=== PATIENT | male | born 1980 | race African-American/Black ===

== ENCOUNTER 2023-06-13 12:13 | Inpatient (IN) | payer BC ==
[2023-06-13] VITALS (18 sets, daily range): BP systolic 63–100; BP diastolic 42–85; TEMP 97.3; O2SAT 88–100
[~2023-06-13] VITALS: Ht 172.7 cm; Wt 74.8 kg
[2023-06-13] MEDS ORDERED: DEXTROSE 50%-WATER 50 ML DISP.SYRIN ONE (12:22)
[2023-06-13] MEDS ORDERED: DEXTROSE 50%-WATER 50 ML DISP.SYRIN IVP ONE (12:30)
[2023-06-13] MEDS ORDERED: HYDROCORTISONE SOD SUCCINATE 100 MG/2 ML VIAL ONE (12:36)
[2023-06-13] MEDS ORDERED: HYDROCORTISONE SOD SUCCINATE 100 MG/2 ML VIAL IV ONE (13:00)
[2023-06-13 13:04] LABS: ALANINE AMINOTRANSFERASE 64 U/L (12-78); ALBUMIN 3.3 g/dL (3.4-5.0); ALKALINE PHOSPHATASE 159 U/L (46-116); ASPARTATE AMINOTRANSFERASE 125 U/L (15-37); BASOPHILS % (AUTO) 0.3 % (0.0-2.0); BILIRUBIN,DIRECT 3.1 mg/dL (0.0-0.2); CALCIUM, SERUM 9.7 mg/dL (8.5-10.1); CARBON DIOXIDE 12 mmol/L (21-32); CHLORIDE 93 mmol/L (98-107); CREATININE 3.5 mg/dL (0.6-1.3); EOSINOPHILS % (AUTO) 0.2 % (0.0-6.0); HEMATOCRIT 27 % (39-51); HEMOGLOBIN 8.1 g/dL (13.5-17.5); LYMPHOCYTES # (AUTO) 0.5 K/uL (0.8-4.8); LYMPHOCYTES % (AUTO) 7.6 % (20.0-44.0); MEAN CORPUSCULAR HEMOGLOBIN 30 PG (26.0-33.0); MEAN CORPUSCULAR HGB CONC 31 g/dl (31.0-36.0); MEAN CORPUSCULAR VOLUME 99 fL (80-96); MONOCYTES # (AUTO) 0.4 K/uL (0.1-1.30); MONOCYTES % (AUTO) 6.2 % (2.0-12.0); NEUTROPHILS # (AUTO) 5.3 K/uL (1.8-8.9); NEUTROPHILS % (AUTO) 85.7 % (43.0-81.0); SODIUM SERUM 131 mmol/L (136-145); TOTAL PROTEIN, SERUM 6.7 g/dL (6.4-8.2); UREA NITROGEN, BLOOD 47 mg/dL (7-18); WHITE BLOOD COUNT (AUTO) 6.1 K/uL (4.3-11.0)
[2023-06-13 13:17] LABS: PLATELET COUNT (AUTO) 27 K/uL (150-450)
[2023-06-13 13:18] LABS: GLUCOSE 30 mg/dL (74-106)
[2023-06-13 13:19] LABS: LACTIC ACID 13.9 mmol/L (0.4-2.0)
[2023-06-13] MEDS ORDERED: AMIO200T5 PO (13:24)
[2023-06-13] MEDS ORDERED: LIDO120C10 TP (13:24)
[2023-06-13] MEDS ORDERED: TROL85CR TP (13:24)
[2023-06-13] MEDS ORDERED: BICT1TAB PO (13:24)
[2023-06-13] MEDS ORDERED: TRAZ-182 PO (13:24)
[2023-06-13] MEDS ORDERED: MIDO10TA PO (13:24)
[2023-06-13] MEDS ORDERED: OXYC5TAB3 PO (13:24)
[2023-06-13] MEDS ORDERED: FURO-144 PO (13:24)
[2023-06-13] MEDS ORDERED: SIME80TA15 PO (13:24)
[2023-06-13] MEDS ORDERED: MELA5TAB PO (13:24)
[2023-06-13] MEDS ORDERED: LIDO30AD10 TD (13:24)
[2023-06-13] MEDS ORDERED: POLY17PO4 PO (13:24)
[2023-06-13] MEDS ORDERED: HONE15GE TP (13:27)
[2023-06-13] MEDS ORDERED: NORM210S TP (13:27)
[2023-06-13] MEDS ORDERED: LEVOFLOXACIN 750 MG /D5W 150ML PIGGYBACK IV ONE (13:30)
[2023-06-13] MEDS ORDERED: IV NS 0.9% 1,000 ML BAG IV ONE (13:30)
[2023-06-13] MEDS ORDERED: VANCOMYCIN 1 GM in IV D5W 250 ML IV ONE (13:30)
[2023-06-13] MEDS ORDERED: ONDANSETRON HCL/PF 4 MG/2 ML VIAL IVP PRN (14:00)
[2023-06-13] MEDS ORDERED: ACETAMINOPHEN 325 MG TABLET PO PRN (14:00)
[2023-06-13] MEDS ORDERED: MAGNESIUM HYDROXIDE 30 ML UDC PO PRN (14:00)
[2023-06-13] MEDS ORDERED: MAG HYDROX/AL HYDROX/SIMETH 30 ML UDC PO PRN (14:00)
[2023-06-13] MEDS ORDERED: IV D5/0.45 NACL 1,000 ML IV SCH (14:00)
[2023-06-13] MEDS ORDERED: Z GUARD REMEDY 4 OZ OINT TP PRN (14:00)
[2023-06-13] MEDS ORDERED: NOREPINEPHRINE 8 MG in IV NS 0.9% 242 ML IV PRN (14:30)
[2023-06-13] MEDS ORDERED: VANCOMYCIN POST DIALYSIS 500MG IV PRN ×2 (15:00)
[2023-06-13 15:19] LABS: SITE, ABG Other
[2023-06-13 17:27] LABS: ANISOCYTOSIS 1+; BAND % (MANUAL) 2 % (0.0-5.0); EOSINOPHILS % (MANUAL) 1 % (0-4); LYMPHOCYTES % (MANUAL) 12 % (16-48); MONOCYTES % (MANUAL) 1 % (0-11.0); NEUTROPHILS % (MANUAL) 84 (42-76); PLATELET ESTIMATE DECREASED; ROULEAUX 1+
[2023-06-13 17:28] LABS: TARGET CELLS 1+
[2023-06-13 17:54] LABS: ABG OXYGEN SATURATION 35.7 % (92.0-98.5); ABG PCO2 26.6 mmHg (35.0-45.0); ABG PH 7.284 (7.350-7.450); ABG TOTAL HEMOGLOBIN 8.5 G/dL (13.5-18.0); COHb 0.4 % (0.5-1.5); MetHb 0.7 % (0.0-1.5); O2Hb 35.3 % (94.0-97.0); VENT MODE, BG BIPAP 15/5 R16 50%
[2023-06-13 21:27] LABS: INR 2.05 (0.91-1.10); PROTHROMBIN TIME 21.2 SECS (9.2-11.1)
[2023-06-13 21:28] LABS: PARTIAL THROMBOPLASTIN TIME 37.5 SEC (24.3-34.3)
[2023-06-13] MEDS: HYDROCORTISONE SOD SUCCINATE 100 MG/2 ML VIAL IV SCH (21:48)
[2023-06-13] MEDS ORDERED: SULFAMETHOXAZOLE/TRIMETHOPRIM 15 ML in IV D5W 250 ML IV SCH (22:00)
[2023-06-13] MEDS ORDERED: SULFAMETHOXAZOLE/TRIMETHOPRIM 10 ML VIAL IV ONE ×2 (22:17→22:21)
[2023-06-13] MEDS ORDERED: METRONIDAZOLE 500MG/ NS 100ML 100 ML IV ONE (22:29)
[2023-06-13] MEDS ORDERED: METRONIDAZOLE 500MG/ NS 100ML 500 MG in PREMIX 1 EA IV SCH (22:55)
[2023-06-13] MEDS: NOREPINEPHRINE 8 MG in IV NS 0.9% 242 ML IV PRN (23:01)
[2023-06-13] MEDS ORDERED: GENTAMICIN 80 MG/2 ML VIAL ONE (23:10)
[2023-06-13] MEDS ORDERED: GENTAMICIN IV ONE (23:30)
[2023-06-13] MEDS ORDERED: D5W IV ONE (23:30)
[2023-06-13] MEDS: SULFAMETHOXAZOLE/TRIMETHOPRIM 15 ML in IV D5W 250 ML IV SCH (23:41)
[2023-06-14] VITALS (42 sets, daily range): BP systolic 0–100; BP diastolic 0–83; TEMP 97–98.6; O2SAT 0–100
[2023-06-14] MEDS ORDERED: IV NS 0.9% 250 ML IV PRN (02:30)
[2023-06-14 04:22] LABS: BASOPHILS % (AUTO) 0.2 % (0.0-2.0); EOSINOPHILS # (AUTO) 0.1 K/uL (0.0-0.7); EOSINOPHILS % (AUTO) 0.7 % (0.0-6.0); HEMATOCRIT 29 % (39-51); HEMOGLOBIN 8.3 g/dL (13.5-17.5); LYMPHOCYTES # (AUTO) 0.6 K/uL (0.8-4.8); LYMPHOCYTES % (AUTO) 7.6 % (20.0-44.0); MEAN CORPUSCULAR HEMOGLOBIN 30 PG (26.0-33.0); MEAN CORPUSCULAR HGB CONC 29 g/dl (31.0-36.0); MEAN CORPUSCULAR VOLUME 103 fL (80-96); MONOCYTES # (AUTO) 0.4 K/uL (0.1-1.30); NEUTROPHILS # (AUTO) 6.3 K/uL (1.8-8.9); NEUTROPHILS % (AUTO) 85.5 % (43.0-81.0); RED BLOOD CELL COUNT(AUTO) 2.78 MIL/uL (4.5-6.0); RED CELL DISTRIBUTION WIDTH 24.1 % (11.5-15.0); WHITE BLOOD COUNT (AUTO) 7.4 K/uL (4.3-11.0)
[2023-06-14] MEDS: HYDROCORTISONE SOD SUCCINATE 100 MG/2 ML VIAL IV SCH (04:22)
[2023-06-14] MEDS: DEXTROSE 50%-WATER 50 ML DISP.SYRIN IVP PRN ×2 (04:22→12:59)
[2023-06-14 04:25] LABS: PLATELET COUNT (AUTO) 26 K/uL (150-450)
[2023-06-14 04:44] LABS: LYMPHOCYTES % (MANUAL) 10 % (16-48); MONOCYTES % (MANUAL) 6 % (0-11.0); NEUTROPHILS % (MANUAL) 84 (42-76)
[2023-06-14 04:45] LABS: PLATELET ESTIMATE DECREASED
[2023-06-14 04:46] LABS: ANISOCYTOSIS 2+
[2023-06-14 04:51] LABS: HYPOCHROMASIA 1+
[2023-06-14] MEDS ORDERED: METRONIDAZOLE 500MG/ NS 100ML 500 MG in PREMIX 1 EA IV SCH (05:00)
[2023-06-14 05:10] LABS: CALCIUM, SERUM 9.4 mg/dL (8.5-10.1); CREATININE 3.6 mg/dL (0.6-1.3); MAGNESIUM 3.3 mg/dL (1.8-2.4); PHOSPHORUS 6.9 mg/dL (2.5-4.9)
[2023-06-14 05:19] LABS: POTASSIUM 6.4 mmol/L (3.5-5.1)
[2023-06-14] MEDS ORDERED: MIDODRINE HCL (5MG) 5 MG TABLET PO PRN (06:30)
[2023-06-14] MEDS ORDERED: GENTAMICIN 80 MG in IV D5W 50 ML IV PRN (07:00)
[2023-06-14] MEDS: NOREPINEPHRINE 8 MG in IV NS 0.9% 242 ML IV PRN (07:56)
[2023-06-14] MEDS ORDERED: NOREPINEPHRINE 32 MG in IV NS 0.9% 218 ML IV PRN (08:00)
[2023-06-14] MEDS ORDERED: SODIUM POLYSTYRENE SULFONATE 15 G/60 ML BOTTLE PO ONE (08:00)
[2023-06-14 08:03] LABS: ABG BASE EXCESS -19.4 mmol/L; SITE, ABG Right Radial; VENT MODE, BG BIPAP 15/5 R16 40%
[2023-06-14 08:25] LABS: ABG OXYGEN SATURATION 73.2 % (92.0-98.5); ABG PH 7.085 (7.350-7.450); ABG TOTAL HEMOGLOBIN 9.4 G/dL (13.5-18.0); AaDO2 196.6 mmHg; COHb 0.6 % (0.5-1.5); MetHb 0.3 % (0.0-1.5); O2Hb 72.5 % (94.0-97.0)
[2023-06-14] MEDS ORDERED: INSULIN REGULAR, HUMAN 100 UNIT/ML 10 ML VIAL IV ONE (08:30)
[2023-06-14] MEDS ORDERED: DEXTROSE 50%-WATER 50 ML DISP.SYRIN IVP ONE (08:30)
[2023-06-14] MEDS ORDERED: PHENYLEPHRINE 100 MG in IV NS 0.9% 240 ML IV PRN (08:30)
[2023-06-14] MEDS: SULFAMETHOXAZOLE/TRIMETHOPRIM 15 ML in IV D5W 250 ML IV SCH (08:55)
[2023-06-14] MEDS ORDERED: AMIODARONE HCL 200 MG TABLET PO SCH (09:00)
[2023-06-14] MEDS ORDERED: BLOOD SUGAR DIAGNOSTIC 1 EACH STRIP VI SCH (12:00)
[2023-06-15 11:07] LABS: *BASOS 0 % (Not Estab.); *COMMENTS Note: (.); *EOS 0 % (Not Estab.); *HCT 22.2 % (37.5-51.0); *HGB 7.3 g/dL (13.0-17.7); *IMMATURE GRANULOCYTES 1 % (Not Estab.); *IMMATURE GRANULOCYTES(ABS) 0.1 x10E3/uL (0.0-0.1); *LYMPHOCYTES 8 % (Not Estab.); *LYMPHS, ABSOLUTE 0.5 x10E3/uL (0.7-3.1); *MCH 31.6 pg (26.6-33.0); *MCHC 32.9 g/dL (31.5-35.7); *MCV 96 fL (79-97); *MONOCYTES 6 % (Not Estab.); *MONOS, ABSOLUTE 0.4 x10E3/uL (0.1-0.9); *NEUTROPHILS 85 % (Not Estab.); *NEUTROPHILS, ABSOLUTE 5.2 x10E3/uL (1.4-7.0); *NRBC 1 % (0 - 0); *PLT 44 x10E3/uL (150-450); *RBC 2.31 x10E6/uL (4.14-5.80); *RDW 17.2 % (11.6-15.4); *WBC 6.2 x10E3/uL (3.4-10.8)
[2023-06-15 12:07] LABS: HEPATITIS B SURFACE AB Non Reactive (.)
[2023-06-15] MEDS ORDERED: LEVOFLOXACIN 500 MG /D5W 100ML 500 MG in PREMIX 1 EA IV SCH (13:00)
[2023-06-15 15:07] LABS: *% CD 8 POS. LYMPH 34.8 % (12.0-35.5); *ABSOLUTE CD 4 HELPER 270 /uL (359-1519); *ABSOLUTE CD 8 SUPPRESSOR 174 /uL (109-897); *CD4/CD8 RATIO 1.55 (0.92-3.72)
== END 2023-06-14 18:38 | DRG 871 ==
LOC: ER 12:16 → ICU 14:11
PROVIDERS: ADMIT Internal Medicine; ATTEND Internal Medicine
PROC: 5A09357 Assistance with Respiratory Ventilation, Less than 24 Consecutive Hours, Continuous Positive Airway Pressure (ICD-10-PCS; principal; 2023-06-13)
PROC: 5A1D70Z Performance of Urinary Filtration, Intermittent, Less than 6 Hours Per Day (ICD-10-PCS; 2023-06-14)
PROC: 02HV33Z Insertion of Infusion Device into Superior Vena Cava, Percutaneous Approach (ICD-10-PCS; 2023-06-14)
PROC: B548ZZA Ultrasonography of Superior Vena Cava, Guidance (ICD-10-PCS; 2023-06-14)
DX: A41.9 Sepsis, unspecified organism (principal); E43 Unspecified severe protein-calorie malnutrition; J96.01 Acute respiratory failure with hypoxia; N18.6 End stage renal disease; R65.21 Severe sepsis with septic shock; J96.02 Acute respiratory failure with hypercapnia; G92.8 Other toxic encephalopathy; J15.6 Pneumonia due to other Gram-negative bacteria; E87.1 Hypo-osmolality and hyponatremia; E87.20 Acidosis, unspecified; G93.40 Encephalopathy, unspecified; N17.9 Acute kidney failure, unspecified; R64 Cachexia; J90 Pleural effusion, not elsewhere classified; Z66 Do not resuscitate; Z51.5 Encounter for palliative care; Z99.2 Dependence on renal dialysis; Z20.822 Contact with and (suspected) exposure to COVID-19; Z87.39 Personal history of other diseases of the musculoskeletal system and connective tissue; Z88.0 Allergy status to penicillin; Z79.899 Other long term (current) drug therapy; R68.0 Hypothermia, not associated with low environmental temperature; D53.9 Nutritional anemia, unspecified; E87.70 Fluid overload, unspecified; E11.22 Type 2 diabetes mellitus with diabetic chronic kidney disease; E11.649 Type 2 diabetes mellitus with hypoglycemia without coma; D69.6 Thrombocytopenia, unspecified; F32.9 Major depressive disorder, single episode, unspecified; E88.09 Other disorders of plasma-protein metabolism, not elsewhere classified; I51.7 Cardiomegaly; E87.5 Hyperkalemia; E11.65 Type 2 diabetes mellitus with hyperglycemia; M89.8X9 Other specified disorders of bone, unspecified site; Y95 Nosocomial condition
CPT/HCPCS: 36415; 36600; 71045-TC; 80048-TC; 80076-TC; 80170-TC; 80202-TC; 82803-TC; 82962-TC; 83605-TC; 83735-TC; 84100-TC; 84484-TC; 85025-TC; 85730-TC; 86360; 86706; 87040-TC; 87081-TC; 87340; 94799-TC; A4216; A4223; G0378; J1580; J1720; J1815; J1956; J2370; J3370; J3490; J7030; J7050; J7060